=== PATIENT | male | born 1985 | race African-American/Black ===

== ENCOUNTER 2019-01-22 09:31 | Emergency (ER) | payer MEDICAID ==
[~2019-01-22] VITALS: Ht 185.4 cm; Wt 86.2 kg
--- NOTE | 2019-01-22 09:49 | NUR ---
ED Nurse Note: Pt came in from home due to productive cough with congestion x yesterday. Yellowish phlegm. Lung sounds clear at this time. AOOx4, vital signs stable. No fever. Will cont to monitor.
--- NOTE | 2019-01-22 09:56 | Emergency Room Report ---
History of Present Illness General Chief Complaint: Flu Like Symptoms Source: Patient Present Illness HPI Patient is a 33-year-old male brought in by self after increased cough and difficulty with breathing. He had some prior history of intermittent episodes like this in the past. He denies being a smoker. He reports having previously taken inhalers when he gets ill but does not take regularly any medications. He denies any fever. He has a nonproductive cough. He denies any leg pain or swelling. Denies any sore throat. Allergies: Coded Allergies: No Known Allergies (Unverified , 01/22/19) Patient History Past Medical History: see triage record Reviewed Nursing Documentation: PMH: Agreed; PSxH: Agreed Nursing Documentation-PMH Past Medical History: No Stated History Review of Systems All Other Systems: negative except mentioned in HPI Physical Exam Vital Signs Date Time Temp Pulse Resp B/P (MAP) Pulse Ox O2 Delivery O2 Flow Rate FiO2 01/22/19 09:37 98.8 83 20 137/79 (98) 95 Room Air Sp02 EP Interpretation: reviewed, normal General Appearance: normal inspection, well appearing, no apparent distress, alert, GCS 15 Head: atraumatic ENT: normal ENT inspection, hearing grossly normal, normal voice Neck: normal inspection, full range of motion, supple, no bony tend Respiratory: normal inspection, no respiratory distress, no retraction, wheezing Cardiovascular #1: regular rate, rhythm, no edema Gastrointestinal: normal inspection, normal bowel sounds, non tender, soft, no guarding, no hernia Genitourinary: no CVA tenderness Musculoskeletal: normal inspection, back normal, normal range of motion Neurologic: normal inspection, alert, oriented x3, responsive, speech normal Psychiatric: normal inspection, judgement/insight normal, mood/affect normal Medical Decision Making Diagnostic Impression: Primary Impression: Bronchitis ER Course Patient presented for cough. Differential diagnosis included but was not limited to bronchitis, pneumonia, pulmonary embolism, pericarditis, asthma, foreign body. Patient has a benign exam and does not appear to require any imaging or laboratory testing at this time. Patient was given breathing treatment with improvement in symptoms. Patient does appear to have some evidence of viral bronchitis. He will be given oral steroids as well as prescription for medications for symptomatic treatment of cough. Does not have any known risk factor for pulmonary embolism.Patient appears to be stable for outpatient management he was advised to return if worse. Last Vital Signs Date Time Temp Pulse Resp B/P (MAP) Pulse Ox O2 Delivery O2 Flow Rate FiO2 01/22/19 09:43 83 20 Room Air 01/22/19 09:37 98.8 137/79 (98) 95 Status: improved Disposition: HOME, SELF-CARE Condition: Stable Scripts Prednisone* (PREDNISONE*) 20 Mg Tablet 40 MG ORAL DAILY, #8 TAB Prov: Acosta Maharaj MD 01/22/19 Guaifenesin* (ADULT WAL-TUSSIN*) 100 Mg/5 Ml Liquid 5 ML ORAL Q4H, #120 ML Prov: Acosta Maharaj MD 01/22/19 Albuterol Sulfate* (ALBUTEROL SULFATE MDI*) 8.5 Gm Hfa.aer.ad 2 PUFF INH Q4H PRN for cough/wheezing, #1 EA 0 Refills Prov: Acosta Maharaj MD 01/22/19 Acosta Maharaj MD Jan 22, 2019 09:56
[2019-01-22] MEDS ORDERED: ADULT WAL-100 MG/5 M ORAL (09:57)
[2019-01-22] MEDS ORDERED: ALBUTEROL SULF8.5 GM INH (09:57)
[2019-01-22] MEDS ORDERED: Albuterol/Ipratropium 3ml neb HHN ONE (10:00)
--- NOTE | 2019-01-22 10:03 | NUR ---
ED Nurse Note: RT at bedside for breathing tx.
[2019-01-22] MEDS ORDERED: PREDNISONE20 MG ORAL (10:26)
[2019-01-22 10:32] VITALS: BP 132/79
--- NOTE | 2019-01-22 10:32 | NUR ---
ER DISCHARGE NOTE: Patient is cleared to be discharged per ERMD, pt is aox4, on room air, with stable vital signs. pt was given dc and prescription instructions, pt was able to verbalize understanding, pt id band removed. pt is able to ambulate with steady gait. pt took all belongings.
== END 2019-01-22 10:32 | disposition home or self-care (01) ==
LOC: EMR 10:07
DX: J20.9 Acute bronchitis, unspecified (principal)
CPT/HCPCS: 94640; 94664; J7512; Z7502; 99284; J7620